=== PATIENT | female | born 1930 | race Caucasian/White ===

== ENCOUNTER → 2016-11-17 | Outpatient (CLI) | payer OTHER, BC | LOC: BMCIMAGING 11:09 | DX: Z12.31 Encounter for screening mammogram for malignant neoplasm of breast (principal) | CPT/HCPCS: G0202 ==

== ENCOUNTER 2017-04-13 13:39 | Inpatient (IN) | payer OTHER, BC ==
[2017-04-13] MEDS ORDERED: IPRATROPIUM/ALBUTEROL 3 ML DEYVIAL IH ONE (14:21)
--- NOTE | 2017-04-13 14:28 | EDPHY ---
H & P Time Seen by Provider: 04/13/17 13:57 HPI/ROS: CHIEF COMPLAINT: Can't breathe HISTORY OF PRESENT ILLNESS: This 87-year-old woman is sent here from [facility] after going there feeling shortness of breath. She says she has been fighting a cold all week with cough and congestion. She is normally on home oxygen at 4 L but today she was 81% on [address] [facility] and was sent here for further evaluation. Her symptoms of shortness of breath or severe. Not associated with chest pain or mopped assess. Worse with exertion or lying flat. Worse for the last week. REVIEW OF SYSTEMS: Eye: no change in vision ENT: no sore throat Cardiac: no chest pain or syncope Pulmonary: HPI Abdomen: no vomiting, diarrhea, abdominal pain Musculoskeletal: Chronic lower extremity edema bilaterally unchanged Skin: Chronic venous stasis changes. Neuro: no headache Constitutional: no fever : no urinary symptoms A comprehensive 10 point review of systems is otherwise negative aside from elements mentioned in the history of present illness. PAST MEDICAL HISTORY: Includes scoliosis with nonfunctional right lung, home oxygen, myocardial infarction, leg fracture, shoulder surgery, cholecystectomy. Social history: Nonsmoker General Appearance: Alert and conversant, cooperative. Eyes: No scleral icterus. ENT, Mouth: Normal mucous membranes. Respiratory: Decreased breath sounds on the right side, wheezing on the left and crackles. Cardiovascular: Regular rate and rhythm. 1/6 systolic murmur. Gastrointestinal: Abdomen is soft and non tender. Neurological: Alert and oriented x3. Normally conversant. Face symmetric, normal movement and sensation in all extremities. Skin: Warm and dry, no rashes. Musculoskeletal: Bilateral 2+ pedal edema with no calf tenderness. Psychiatric: Not agitated. Emergency Department course/MDM: DuoNeb, blood cultures, flu test, supplemental oxygen increased keep saturations in the 90s. 1518: Chest x-ray shows bilateral lower lung infiltrates. She has a sense of sepsis but not severe sepsis or septic shock. White blood count and heart rate are elevated. Levaquin 750 mg IV for community-acquired pneumonia and normal saline 1 L IV. Penicillin allergy. Smoking Status: Former smoker Constitutional: Initial Vital Signs Temperature (C) 36.7 C 04/13/17 13:44 Heart Rate 99 04/13/17 13:44 Respiratory Rate 16 04/13/17 13:44 Blood Pressure 142/76 H 04/13/17 13:44 O2 Sat (%) 83 L 04/13/17 13:44 O2 Delivery Mode Nasal Cannula O2 (L/minute) 5 Allergies/Adverse Reactions: latex Allergy (Intermediate, Verified 10/28/13 14:41) Other-Enter Comments Latex, Natural Rubber Allergy (Verified 10/28/13 13:57) Penicillins Allergy (Verified 10/28/13 14:41) Home Medications: Medication Instructions Recorded Acetaminophen/Chlorpheniramine 1 each PO Q4H PRN 04/13/17 [Coricidin Cold & Flu Tablet] Ascorbic Acid [Vitamin C 500 mg 500 mg PO DAILY 04/13/17 (*)] Aspirin [Aspirin 81mg (*)] 81 mg PO DAILY 04/13/17 Atorvastatin Calcium [Lipitor 40 40 mg PO HS 04/13/17 mg (*)] Cholecalciferol Vit D3 [Vitamin D3 1,000 units PO DAILY 04/13/17 (*)] Denosumab [Prolia] 60 mg SQ Q180D 04/13/17 Escitalopram Oxalate [Lexapro] 10 mg PO DAILY 04/13/17 Esomeprazole Mag Trihydrate 40 mg PO DAILY 04/13/17 [Nexium] Furosemide [Lasix 20 MG (*)] 20 mg PO DAILY@18 04/13/17 Furosemide [Lasix 20 MG (*)] 40 mg PO DAILY 04/13/17 Herbals/Supplements -Info Only 1 ea PO DAILY 04/13/17 LORazepam [Ativan (*)] 1 mg PO HS PRN 04/13/17 Metoprolol Succinate Xr [Toprol Xl 25 mg PO BID 04/13/17 50 mg (*)] Potassium Chloride 20 meq PO DAILY 04/13/17 Medical Decision Making - Diagnostics EKG Interpretation: 12-lead EKG interpreted by me; official reading is in trace master. My interpretation is sinus rhythm rate 93 with left axis and nonspecific anterolateral T-wave abnormalities. Imaging Results: Imaging Impressions Chest X-Ray 04/13/17 14:21 Impression: Interstitial edema versus viral pneumonitis. Chest x-ray personally interpreted shows bilateral lower lung infiltrates. Differential Diagnosis: Differential diagnosis considered for shortness of breath including but not limited to pulmonary infectious process, COPD, asthma, pulmonary embolus and congestive heart failure. Consult/Admit Bed Type: [facility] [place] [id number] - Data Points Laboratory Results: Laboratory Results 04/13/17 14:50 04/13/17 14:50 04/13/17 04/13/17 04/13/17 14:50 14:50 14:50 WBC 13.13 10^3/uL H 10^3/uL (3.80-9.50) RBC 3.80 10^6/uL L 10^6/uL (4.18-5.33) Hgb 11.8 g/dL L g/dL (12.6-16.3) Hct 36.0 % L % (38.0-47.0) MCV 94.7 fL fL (81.5-99.8) MCH 31.1 pg pg (27.9-34.1) MCHC 32.8 g/dL g/dL (32.4-36.7) RDW 13.3 % % (11.5-15.2) Plt Count 178 10^3/uL 10^3/uL (150-400) MPV 9.6 fL fL (8.7-11.7) Neut % (Auto) 79.4 % H % (39.3-74.2) Lymph % (Auto) 10.8 % L % (15.0-45.0) Carlton % (Auto) 8.7 % % (4.5-13.0) Eos % (Auto) 0.0 % L % (0.6-7.6) Baso % (Auto) 0.4 % % (0.3-1.7) Nucleat RBC Rel Count 0.0 % % (0.0-0.2) Absolute Neuts (auto) 10.43 10^3/uL H 10^3/uL (1.70-6.50) Absolute Lymphs (auto) 1.42 10^3/uL 10^3/uL (1.00-3.00) Absolute Monos (auto) 1.14 10^3/uL H 10^3/uL (0.30-0.80) Absolute Eos (auto) 0.00 10^3/uL L 10^3/uL (0.03-0.40) Absolute Basos (auto) 0.05 10^3/uL 10^3/uL (0.02-0.10) Absolute Nucleated RBC 0.00 10^3/uL 10^3/uL (0-0.01) Immature Gran % 0.7 % % (0.0-1.1) Immature Gran # 0.09 10^3/uL 10^3/uL (0.00-0.10) PT 16.2 SEC H SEC (12.0-15.0) INR 1.30 H (0.83-1.16) APTT 30.0 SEC SEC (23.0-38.0) VBG Lactic Acid Sodium 139 mEq/L mEq/L (134-144) Potassium 3.0 mEq/L L mEq/L (3.5-5.2) Chloride 99 mEq/L mEq/L (97-110) Carbon Dioxide 29 mEq/l mEq/l (22-31) Anion Gap 11 mEq/L mEq/L (8-16) BUN 12 mg/dL mg/dL (7-23) Creatinine 0.6 mg/dL mg/dL (0.6-1.0) Estimated GFR > 60 Glucose 119 mg/dL H mg/dL (70-100) Calcium 8.0 mg/dL L mg/dL (8.5-10.4) Total Bilirubin 1.7 mg/dL H mg/dL (0.1-1.4) 04/13/17 14:50 WBC RBC Hgb Hct MCV MCH MCHC RDW Plt Count MPV Neut % (Auto) Lymph % (Auto) Carlton % (Auto) Eos % (Auto) Baso % (Auto) Nucleat RBC Rel Count Absolute Neuts (auto) Absolute Lymphs (auto) Absolute Monos (auto) Absolute Eos (auto) Absolute Basos (auto) Absolute Nucleated RBC Immature Gran % Immature Gran # PT INR APTT VBG Lactic Acid 1.1 mmol/L mmol/L (0.7-2.1) Sodium Potassium Chloride Carbon Dioxide Anion Gap BUN Creatinine Estimated GFR Glucose Calcium Total Bilirubin Microbiology Results: MICROBIOLOGY 04/13/17 14:50 Nasal, Sinus - Swab Respiratory Panel (PCR) - Final No Organism Detected Medications Given: Levofloxacin/Dextrose (Levaquin 750 Mg (Premix)) 150 mls @ 100 mls/hr IV EDNOW ONE PRN Reason: Protocol Stop: 04/13/17 16:47 Last Admin: 04/13/17 15:31 Dose: 150 mls Discontinued Medications Albuterol/Ipratropium (Duoneb) 3 ml IH EDNOW ONE Stop: 04/13/17 14:22 Last Admin: 04/13/17 14:41 Dose: 3 ml Sodium Chloride (Ns) 1,000 mls @ 0 mls/hr IV EDNOW ONE; Wide Open PRN Reason: Protocol Stop: 04/13/17 15:19 Last Admin: 04/13/17 15:37 Dose: 1,000 mls Departure - Departure Disposition: [facility] Inpatient Acute Clinical Impression: Pneumonia Qualifiers: Pneumonia type: due to unspecified organism Laterality: bilateral Lung location : lower lobe of lung Qualified Code(s): J18.9 - Pneumonia, unspecified organism Condition: Good
[2017-04-13 15:00] LABS: % IMMATURE GRANULYOCYTES 0.7 % (0.0-1.1); ABSOLUTE IMMATURE GRANULOCYTES 0.09 10^3/uL (0.00-0.10); ADD DIFF? NO; ADD MORPH? NO; ADD SCAN? NO; ATYPICAL LYMPHOCYTE FLAG 0 (0-99); FRAGMENT RBC FLAG 0 (0-99); HEMOGLOBIN 11.8 g/dL (12.6-16.3); LEFT SHIFT FLG 20 (0-99); LIPEMIA HEMOLYSIS FLAG 80 (0-99); MEAN CELL HEMOGLOBIN 31.1 pg (27.9-34.1); MEAN CELL HEMOGLOBIN CONCENTR. 32.8 g/dL (32.4-36.7); MEAN CELL VOLUME 94.7 fL (81.5-99.8); MEAN PLATELET VOLUME 9.6 fL (8.7-11.7); PLATELET CLUMPS FLAG 0 (0-99); PLATELET COUNT 178 10^3/uL (150-400); RED CELL DISTRIBUTION WIDTH 13.3 % (11.5-15.2)
[2017-04-13 15:14] LABS: ANION GAP 11 mEq/L (8-16); BILIRUBIN,TOTAL 1.7 mg/dL (0.1-1.4); CARBON DIOXIDE 29 mEq/l (22-31); CHLORIDE 99 mEq/L (97-110); CREATININE 0.6 mg/dL (0.6-1.0); GLOMERULAR FILTRATION RATE > 60; GLUCOSE 119 mg/dL (70-100); SODIUM 139 mEq/L (134-144)
[2017-04-13] MEDS ORDERED: NS 1,000 ML IV ONE (15:18)
[2017-04-13 15:29] LABS: INR 1.3 (0.83-1.16); PROTIME(PATIENT) 16.2 SEC (12.0-15.0)
[2017-04-13] MEDS ORDERED: ONDANSETRON DISINTEGRATING 4 MG TAB PO PRN (16:26)
[2017-04-13] MEDS ORDERED: ONDANSETRON 4 MG/2 ML VIAL IVP PRN (16:26)
[2017-04-13] MEDS ORDERED: ACETAMINOPHEN 325 MG TAB PO PRN (16:26)
[2017-04-13] MEDS ORDERED: LORazepam 1 MG TAB PO PRN (16:29)
[2017-04-13] MEDS ORDERED: NON-FORMULARY NEW DRUG (Denosumab [Prolia] 60 MG) SQ SCH (16:30)
--- NOTE | 2017-04-13 16:33 | CPEKG ---
Heart Rate: 93 RR Interval: 645 P-R Interval: 128 QRSD Interval: 94 QT Interval: 356 QTC Interval: 443 P Quincy: 64 QRS Quincy: -16 T Wave Quincy: 74 EKG Severity - ABNORMAL ECG - EKG Impression: SINUS RHYTHM EKG Impression: MULTIPLE ATRIAL PREMATURE COMPLEXES EKG Impression: BORDERLINE LEFT AXIS DEVIATION EKG Impression: BORDERLINE INFERIOR Q WAVES EKG Impression: BORDERLINE T ABNORMALITIES, ANT-LAT LEADS Electronically Signed By: Ayo Helton 13-Apr-2017 17:00:59
--- NOTE | 2017-04-13 17:35 | GHP ---
[f rep st] HISTORY AND PHYSICAL DATE OF ADMISSION: 04/13/2017 CHIEF COMPLAINT: Worsening shortness of breath x1 week. HISTORY OF PRESENT ILLNESS: The patient is a very sweet 87-year-old female with a history of scoliosis with a nonfunctioning right lung who was initially seen at [facility] for feeling short of breath. She has not been feeling well for approximately a week. She has had a productive cough as well as congestion. She denies any fever, but has had some ongoing chills. At baseline, she is on 4 L around the clock. At the [facility] her oxygen was increased to 5 L with some improvement. She describes being more short of breath with any type of activity. She does not have any chest pain. During my interview, she is feeling better but is still short of breath when talking. PAST MEDICAL HISTORY AND PAST SURGICAL HISTORY: 1. Cataract surgery. 2. Scoliosis with a nonfunctioning right lung. 3. History of depression. Well managed. 4. Hypertension. 5. History of myocardial infarction in 1998. 6. Right leg fracture in 2003. 7. Right total shoulder arthroplasty in 2013. 8. Cholecystectomy. 9. Hyperlipidemia. FAMILY HISTORY: Her father of at age 38. Her mother of heart disease at age 77. SOCIAL HISTORY: She lives alone and is very independent. She has been x4 years. Her here at [facility]. She has 1 daughter. 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 She rarely drinks alcohol and she smoked rarely when she was 20. ALLERGIES: Latex and penicillin. Penicillin causes a rash. HOME MEDICATIONS: Prolia 60 mg subcu every 180 days, Coricidin Cold and Flu tablet, herbal supplements daily, Ativan 1 mg p.o. at bedtime, Lasix 20 mg daily at 1800, vitamin D3 at 1000 units daily, vitamin C 500 mg daily, Lasix 40 mg daily, potassium chloride 20 mEq daily, Lexapro 10 mg daily, Lipitor 40 mg p.o. at bedtime, Nexium 40 mg daily, metoprolol XR 20 mg p.o. twice daily, and aspirin 81 mg daily. REVIEW OF SYSTEMS: A 10-point review of system was performed, was negative other than the pertinent positive in HPI and past medical history. PHYSICAL EXAM: GENERAL: The patient is an 87-year-old female who appears younger than her stated years. VITAL SIGNS: Blood pressure is 125/67, heart rate is 86, heart rate is 91, respiratory rate is 16, O2 saturation on 4 L are 96%, temperature is 36.7 Celsius. HEENT: Eyes pupils are equal and reactive. EOMs are intact. No conjunctival injection noted. She is wearing glasses. ENT : Normal ears. Hearing intact. Normal lips, teeth. Airway is moist. NECK: Trachea is midline. CARDIOVASCULAR: She is in a regular rate and rhythm. No murmur murmurs rubs or gallops noted. 2+ pedal pulses. CHEST/LUNGS: She has significant decreased breath sounds on her right middle lobe down and poor expiration at her left base. No wheezing, rales, or rhonchi are noted. ABDOMEN : Soft, nontender. SKIN: No rashes or ulcer. MUSCULOSKELETAL: Equal upper and lower extremity strength. PSYCHIATRIC: She is alert and oriented. Normal mood and affect. Normal judgment, insight, and normal memory. DATA: A CBC shows a white blood cell count of 13.13, hemoglobin 11.8, hematocrit of 36. Coags show a pro time of 16.2, INR of 1.3. Blood gas shows a venous lactic acid of 1.1. Chemistry shows sodium 139, potassium of 3, BUN of 12, creatinine 0.6, glucose of 119, total bili of 1.7, calcium of 8. ECG was performed which shows sinus rhythm with borderline inferior Q-waves and some T abnormalities in her anterior lateral leads. Chest x-ray shows interstitial edema versus viral pneumonitis. I reviewed her care with Dr. Rolle, emergency room physician. ASSESSMENT/PLAN: 1. Community-acquired pneumonia vs viral pneumonitis. She has symptoms of pneumonia. Will check a procalcitonin to help guide with treatment. She has been started on Levaquin in the emergency room. Will continue this. Will follow up with blood cultures. 2. Hypokalemia. Resumed oral potassium. Will check labs in the morning. 3. Hypertension with a history of a myocardial infarction. Resumed beta barbara therapy and aspirin therapy. Will hold Lasix for now and check a BNP in the a.m. 4. Hyperlipidemia. Resume statin. 5. Deep venous thrombosis prophylaxis. High risk. Will initiate low- molecular weight heparin as well as knee-high thromboembolic hose. 6. Length of stay. She will likely require less than a 2-midnight stay which will make her observation status. This can be further evaluated. 7. Code status. Do not resuscitate. /[id number]/MODL MTDD
[2017-04-13] MEDS: guaiFENesin 600 MG TAB.ER PO SCH ×2 (18:00→21:54)
[2017-04-13] MEDS: IPRATROPIUM/ALBUTEROL 3 ML DEYVIAL IH SCH (21:22)
[2017-04-13] MEDS: ATORVASTATIN CALCIUM 40 MG TAB PO SCH (21:53)
[2017-04-13] MEDS: METOPROLOL SUCCINATE XR 50 MG TAB PO SCH (21:54)
[2017-04-14 05:30] LABS: % IMMATURE GRANULYOCYTES 0.8 % (0.0-1.1); ADD DIFF? NO; ADD MORPH? NO; ADD SCAN? NO; ATYPICAL LYMPHOCYTE FLAG 0 (0-99); FRAGMENT RBC FLAG 0 (0-99); HEMATOCRIT 33.8 % (38.0-47.0); HEMOGLOBIN 10.8 g/dL (12.6-16.3); LEFT SHIFT FLG 20 (0-99); LIPEMIA HEMOLYSIS FLAG 80 (0-99); MEAN CELL HEMOGLOBIN 30.4 pg (27.9-34.1); MEAN CELL VOLUME 95.2 fL (81.5-99.8); MEAN PLATELET VOLUME 9.5 fL (8.7-11.7); PLATELET CLUMPS FLAG 0 (0-99); PLATELET COUNT 160 10^3/uL (150-400); RED BLOOD CELL COUNT 3.55 10^6/uL (4.18-5.33); RED CELL DISTRIBUTION WIDTH 13.3 % (11.5-15.2)
[2017-04-14] MEDS: IPRATROPIUM/ALBUTEROL 3 ML DEYVIAL IH SCH ×4 (05:34→21:09)
[2017-04-14 07:21] LABS: ALANINE AMINOTRANSFERASE 33 IU/L (9-52); ALBUMIN 2.8 g/dL (3.5-5.0); ALKALINE PHOSPHATASE 95 IU/L (38-126); ANION GAP 11 mEq/L (8-16); ASPARTATE AMINOTRANSFERASE 28 IU/L (14-46); BILIRUBIN,TOTAL 1.4 mg/dL (0.1-1.4); CALCIUM 7.8 mg/dL (8.5-10.4); CARBON DIOXIDE 25 mEq/l (22-31); CHLORIDE 101 mEq/L (97-110); CREATININE 0.6 mg/dL (0.6-1.0); GLOMERULAR FILTRATION RATE > 60; GLUCOSE 102 mg/dL (70-100); SODIUM 137 mEq/L (134-144); TOTAL PROTEIN 5.8 g/dL (6.3-8.2)
[2017-04-14 07:25] LABS: POTASSIUM 2.7 mEq/L (3.5-5.2)
[2017-04-14] MEDS ORDERED: POTASSIUM CL 20 MEQ TAB PO ONE (08:00)
[2017-04-14] MEDS ORDERED: PROTOCOL POTASSIUM 1 DOSE MISC PRN (08:07)
[2017-04-14] MEDS: ASPIRIN 81 MG CHEWABLE TAB PO SCH (08:09)
[2017-04-14] MEDS: ESCITALOPRAM OXALATE 10 MG TAB PO SCH (08:11)
[2017-04-14] MEDS: guaiFENesin 600 MG TAB.ER PO SCH ×2 (08:11→22:01)
[2017-04-14] MEDS: METOPROLOL SUCCINATE XR 50 MG TAB PO SCH (08:12)
[2017-04-14] MEDS: CHOLECALCIFEROL VIT D3 1,000 UNITS TAB PO SCH (08:12)
[2017-04-14] MEDS: ASCORBIC ACID 500 MG TAB PO SCH (08:13)
[2017-04-14] MEDS: PANTOPRAZOLE SODIUM 40 MG TAB PO SCH (08:13)
[2017-04-14] MEDS ORDERED: NON-FORMULARY NEW DRUG (Esomeprazole Mag Trihydrate [Nexium] 40 MG) PO SCH (09:00)
[2017-04-14] MEDS ORDERED: ENOXAPARIN 30 MG/0.3 ML SYR SC SCH (09:00)
[2017-04-14] MEDS ORDERED: Herbals/Supplements -Info Only PO SCH (09:00)
[2017-04-14] MEDS ORDERED: FLU VACC QS 2017-18 (3YR+)/PF 0.5 ML SYR (FLUARIX QUAD) IM ONE (10:17)
[2017-04-14] MEDS ORDERED: POTASSIUM CL 10 MEQ TAB PO ONE ×3 (10:19→22:00)
[2017-04-14] MEDS: POTASSIUM CL 20 MEQ TAB PO SCH (10:45)
--- NOTE | 2017-04-14 13:57 | ASMTCMCOM ---
CM Note CM Note Notes: Pt has pneumonia, hypoxia, live independently in the community. No therapies orders. CM will follow for any d/c needs. Date Signed: 04/14/2017 01:56 PM Electronically Signed By:KITA Montgomery
[2017-04-14] MEDS ORDERED: MAGNESIUM SULF 2 GM/WATER 50 ML IV ONE (15:20)
--- NOTE | 2017-04-14 15:31 | HOSPPROG ---
Hospitalist Progress Note Assessment/Plan: 87 yo F likely CAP CAP: infuenza neg agree w levoflox wheezing: nebs "nonfuncting Right lung": i doubt it given normal serum bicarb proph: lmwh hypokalemia: replete hypomagnesemia: replet dispo: inpt PT eval Subjective: case d/w [employer] [place]. cxr w likely pneumonitis (interp by me) Objective: Vital Signs Temp Pulse Resp BP Pulse Ox 36.8 C 91 20 129/77 H 96 04/14/17 11:19 04/14/17 11:19 04/14/17 11:19 04/14/17 11:19 04/14/17 11:19 Laboratory Results 04/14/17 04:23 04/14/17 04:23 04/13/17 04/14/17 04/15/17 05:59 05:59 05:59 Intake Total 1300 350 Balance 1300 350 PT 16.2 SEC (12.0-15.0) H 04/13/17 14:50 INR 1.30 (0.83-1.16) H 04/13/17 14:50 - Physical Exam Constitutional: appears nourished Eyes: PERRL, anicteric sclera Ears, Nose, Mouth, Throat: moist mucous membranes, hearing normal Cardiovascular: regular rate and rhythym, no murmur, rub, or gallop Respiratory: no respiratory distress, no rales or rhonchi, expiratory wheeze Gastrointestinal: normoactive bowel sounds, soft, non-tender abdomen Genitourinary: No sinclair in urethra Skin: warm, normal color Musculoskeletal: full muscle strength Neurologic: AAOx3 ICD10 Worksheet Patient Problems: Problems Problem Status Onset Pneumonia Acute Shoulder arthritis Acute
[2017-04-14 18:48] LABS: POTASSIUM 3.6 mEq/L (3.5-5.2)
[2017-04-14] MEDS: ATORVASTATIN CALCIUM 40 MG TAB PO SCH (22:01)
[2017-04-14] MEDS: METOPROLOL SUCCINATE XR 25 MG TAB PO SCH (22:02)
[2017-04-15] MEDS ORDERED: VANCOMYCIN HCL/NORMAL SALINE 250 ML IV SCH (03:00)
[2017-04-15 04:56] LABS: POTASSIUM 3.8 mEq/L (3.5-5.2)
[2017-04-15] MEDS: IPRATROPIUM/ALBUTEROL 3 ML DEYVIAL IH SCH ×4 (05:31→21:15)
[2017-04-15] MEDS ORDERED: POTASSIUM CL 10 MEQ TAB PO ONE ×2 (09:15→19:08)
[2017-04-15] MEDS: guaiFENesin 600 MG TAB.ER PO SCH ×2 (09:19→20:21)
[2017-04-15] MEDS: METOPROLOL SUCCINATE XR 25 MG TAB PO SCH ×2 (09:20→20:23)
[2017-04-15] MEDS: ESCITALOPRAM OXALATE 10 MG TAB PO SCH (09:20)
[2017-04-15] MEDS: PANTOPRAZOLE SODIUM 40 MG TAB PO SCH (09:20)
[2017-04-15] MEDS: POTASSIUM CL 20 MEQ TAB PO SCH (09:20)
[2017-04-15] MEDS: ASCORBIC ACID 500 MG TAB PO SCH (09:21)
[2017-04-15] MEDS: CHOLECALCIFEROL VIT D3 1,000 UNITS TAB PO SCH (09:21)
[2017-04-15] MEDS: ASPIRIN 81 MG CHEWABLE TAB PO SCH (09:21)
[2017-04-15] MEDS: ENOXAPARIN 40 MG/0.4 ML SYR SC SCH (09:22)
--- NOTE | 2017-04-15 13:47 | HOSPPROG ---
Hospitalist Progress Note Assessment/Plan: 87 yo F likely CAP CAP: infuenza neg agree w levoflox hypoxemia: worse today, > baseline repeat cxr CoNS bacteremia: this pattern highly suggestive of contaminant dc vanc follow wheezing: nebs "nonfuncting Right lung": i doubt it given normal serum bicarb proph: lmwh hypokalemia: replete hypomagnesemia: replete dispo: inpt PT eval Subjective: 1/2 blood cx + for CoNS. feels "much better" Objective: Vital Signs Temp Pulse Resp BP Pulse Ox 36.8 C 111 H 16 124/75 H 87 L 04/15/17 11:11 04/15/17 12:15 04/15/17 11:11 04/15/17 11:11 04/15/17 12:15 Laboratory Results 04/15/17 04:36 04/14/17 04/15/17 04/16/17 05:59 05:59 05:59 Intake Total 250 Output Total 1 Balance 249 PT 16.2 SEC (12.0-15.0) H 04/13/17 14:50 INR 1.30 (0.83-1.16) H 04/13/17 14:50 - Physical Exam Constitutional: no apparent distress, appears nourished Eyes: PERRL, anicteric sclera, EOMI Ears, Nose, Mouth, Throat: moist mucous membranes, hearing normal Cardiovascular: regular rate and rhythym, no murmur, rub, or gallop, No tachycardia Respiratory: no respiratory distress, other (less wheeze, good air movement, scattered crackles) Gastrointestinal: normoactive bowel sounds, soft, non-tender abdomen Genitourinary: no bladder fullness, No sinclair in urethra Skin: warm, normal color Musculoskeletal: full muscle strength Neurologic: AAOx3 ICD10 Worksheet Patient Problems: Problems Problem Status Onset Pneumonia Acute Shoulder arthritis Acute
[2017-04-15 17:32] LABS: POTASSIUM 3.5 mEq/L (3.5-5.2)
[2017-04-15] MEDS: ATORVASTATIN CALCIUM 40 MG TAB PO SCH (20:20)
[2017-04-16] MEDS: IPRATROPIUM/ALBUTEROL 3 ML DEYVIAL IH SCH ×2 (06:07→10:19)
[2017-04-16 06:41] LABS: POTASSIUM 4.1 mEq/L (3.5-5.2)
[2017-04-16] MEDS: ASPIRIN 81 MG CHEWABLE TAB PO SCH (08:46)
[2017-04-16] MEDS: METOPROLOL SUCCINATE XR 25 MG TAB PO SCH (08:49)
[2017-04-16 08:50] VITALS: BP 132/68; TEMP 98.2
[2017-04-16] MEDS: PANTOPRAZOLE SODIUM 40 MG TAB PO SCH (08:50)
[2017-04-16] MEDS: ASCORBIC ACID 500 MG TAB PO SCH (08:50)
[2017-04-16] MEDS: ENOXAPARIN 40 MG/0.4 ML SYR SC SCH (08:50)
[2017-04-16] MEDS: POTASSIUM CL 20 MEQ TAB PO SCH (08:50)
[2017-04-16] MEDS: guaiFENesin 600 MG TAB.ER PO SCH (08:50)
[2017-04-16] MEDS: ESCITALOPRAM OXALATE 10 MG TAB PO SCH (08:50)
[2017-04-16] MEDS: CHOLECALCIFEROL VIT D3 1,000 UNITS TAB PO SCH (08:50)
--- NOTE | 2017-04-16 09:21 | HOSPPROG ---
Hospitalist Progress Note Assessment/Plan: 87 yo F likely CAP CAP: infuenza neg agree w levoflox day 3/ hypoxemia: essentially at baseline cxr yest w increased airspace disease (interp by me), c/w progressive pneumonia CoNS bacteremia: this pattern highly suggestive of contaminant dc vanc afebrile this is contaminant wheezing: nebs "nonfuncting Right lung": i doubt it given normal serum bicarb proph: lmwh hypokalemia: replete hypomagnesemia: replete dispo: home today > 30 minutes Subjective: feels well. quite anxious for dc. thinks breathing is at baseline Objective: Vital Signs Temp Pulse Resp BP Pulse Ox 36.8 C 82 18 132/68 H 94 04/16/17 08:00 04/16/17 08:00 04/16/17 08:00 04/16/17 08:00 04/16/17 08:00 Laboratory Results 04/16/17 06:02 04/15/17 04/16/17 04/17/17 05:59 05:59 05:59 Intake Total 700 Output Total 1 Balance 699 PT 16.2 SEC (12.0-15.0) H 04/13/17 14:50 INR 1.30 (0.83-1.16) H 04/13/17 14:50 - Physical Exam Constitutional: no apparent distress, appears nourished Eyes: PERRL, anicteric sclera Ears, Nose, Mouth, Throat: moist mucous membranes, hearing normal Cardiovascular: regular rate and rhythym, no murmur, rub, or gallop Respiratory: other (good air movement, no wheeze. scattered crackles. improved) Gastrointestinal: normoactive bowel sounds, soft, non-tender abdomen Genitourinary: no bladder fullness, No sinclair in urethra Skin: warm, normal color Musculoskeletal: full muscle strength, no muscle tenderness Neurologic: AAOx3 ICD10 Worksheet Patient Problems: Problems Problem Status Onset Pneumonia Acute Shoulder arthritis Acute
--- NOTE | 2017-04-16 09:52 | GDS ---
[f rep st] DISCHARGE SUMMARY DISCHARGE DIAGNOSES: 1. Community-acquired pneumonia. 2. Hypokalemia. 3. Severe community-acquired pneumonia. 4. Hypoxemia. 5. Coag-negative Staph bacteremia, 1 out of 2, consistent with contaminant. Please see admission history and physical by Dr. Pastora Fitch. The patient presented with increas ed work of breathing and productive cough. She was seen at [facility] where she had a ne gative influenza test. Chest x-ray showed bilateral airspace disease. She had a BNP that is essenti ally at her baseline. The patient received levofloxacin, was afebrile while here. She had hyperkale olinda that improved with supplementation. The patient's baseline oxygen requirement is 4 L. She is on 4-5 here and feeling not short of breath and anxious for discharge. She had 1 out of 2 blood cultur es grow coag-negative staph. She was afebrile. She received 1 dose of vancomycin. I believe this i s consistent with contaminant and will not treat. She did not have repeat blood cultures. The patient's medical chart suggests that she has a nonfunctioning right lung; however, her normal se rum bicarb of 25 is a strong argument that her lung ventilates okay. She is discharged home with 4 additional days of levofloxacin to complete a 7-day course for communit y-acquired pneumonia. She was seen by Physical Therapy while here, who felt that the patient was at her baseline, is safe for discharge to home. /[id number]/MODL
[2017-04-16 11:21] VITALS: PULSE 86; RESP 14; O2SAT 95
--- NOTE | 2017-04-16 16:39 | ASDISCHSUM ---
Discharge Information Plan Status:Home with No Needs Medically Cleared to Leave:04/16/2017 Discharge Date:04/16/2017 12:30 PM CM D/C Disposition: ADT D/C Disposition:Home, Routine, Self-Care Projected Discharge Date:04/16/2017 12:00 AM Transportation at D/C: Discharge Delay Reason: Follow-Up Date:04/16/2017 12:00 AM Discharge Slot: Final Diagnosis: Placement Information Patient Contact Information Contact Name:DENICE Relationship:Daughter Address: Work Phone: City: [facility] Phone: State/[employer] Code: Email: Financial Information Financial Class: Primary Plan Desc:MEDICARE INPATIENT Primary Plan Number:[id number] Secondary Plan Desc:[employer] [facility] Secondary Plan Number:[id number] Assessment Information [facility] CM Progress Note CM Note CM Note Notes: Pt has pneumonia, hypoxia, live independently in the community. No therapies orders. CM will follow for any d/c needs. Date Signed: 04/14/2017 01:56 PM Electronically Signed By:KITA Montgomery Intervention Information Intervention Type:*Incorrect Registration Date of Service:04/13/2017 04:27 PM Patient Type:Observation Staff Member:VIOLET Rice Shelly Hours:0.25 Discipline: Severity:1 (0-1 Hours) Comment:Registered inpatient, admit order writ ten for inpatient status. Intervention Type:*MCCLOUD-Signed Date of Service:04/14/2017 10:18 AM Patient Type:Observation Staff Member:Kylie Rios Hours: Discipline: Severity: Comment: Intervention Type:*IM-Signed Date of Service:04/16/2017 10:04 AM Patient Type:Inpatient Staff Member:Kylie Rios Hours: Discipline: Severity: Comment:
== END 2017-04-16 12:30 | disposition home or self-care (01) | DRG 195 ==
LOC: INTOOBSV 15:28 → F3N 17:13 → OBSVTOIN 04-14 17:59 → F2W 04-15 16:56
PROVIDERS: ADMIT Internal Medicine; ATTEND Internal Medicine
DX: J18.8 Other pneumonia, unspecified organism (principal); R09.02 Hypoxemia; I10 Essential (primary) hypertension; E78.5 Hyperlipidemia, unspecified; E87.6 Hypokalemia; I25.2 Old myocardial infarction; E83.42 Hypomagnesemia; M41.9 Scoliosis, unspecified; Z66 Do not resuscitate
CPT/HCPCS: 96365; 97161-GP; G0378; G8978-GP-CI; G8979-GP-CI; G8980-GP-CI; J1650; J1956; J3370

== ENCOUNTER → 2017-06-08 | Outpatient (CLI) | payer OTHER, BC | LOC: BMCIMAGING 16:55 | PROVIDERS: ATTEND Internal Medicine | DX: R05 Cough (principal); R09.02 Hypoxemia ==

== ENCOUNTER → 2017-06-24 | Outpatient (CLI) | payer OTHER, BC | LOC: BMCIMAGING 15:50 | PROVIDERS: ATTEND Nurse Practitioner Adult Health | DX: J45.909 Unspecified asthma, uncomplicated (principal) ==

== ENCOUNTER 2018-03-09 | Inpatient (IN) | payer OTHER, BC | END 2018-03-13 17:03 | DRG 481 | PROVIDERS: ADMIT Internal Medicine | PROC: 0QS706Z Reposition Left Upper Femur with Intramedullary Internal Fixation Device, Open Approach (ICD-10-PCS; principal; 2018-03-09) | PROC: 30233N1 Transfusion of Nonautologous Red Blood Cells into Peripheral Vein, Percutaneous Approach (ICD-10-PCS; 2018-03-10) ==

== ENCOUNTER → 2018-04-28 | Outpatient (CLI) | payer OTHER, BC | LOC: FIMAGING 12:39 | PROVIDERS: ATTEND Internal Medicine Pulmonary Disease | DX: J98.4 Other disorders of lung (principal); I25.10 Atherosclerotic heart disease of native coronary artery without angina pectoris; I70.0 Atherosclerosis of aorta ==

== ENCOUNTER → 2018-04-29 | Outpatient (CLI) | payer OTHER, BC | LOC: FIMAGING 14:25 | PROVIDERS: ATTEND Internal Medicine | DX: R60.9 Edema, unspecified (principal) ==